=== PATIENT | male | born 1970 | race Caucasian/White ===

== ENCOUNTER 2017-03-16 08:55 | Emergency (ER) | payer OTHER ==
[~2017-03-16] VITALS: Ht 170.2 cm; Wt 69.0 kg
[~2017-03-16 08:55] MED LIST: LORTA5 PO
[2017-03-16 09:00] VITALS: BP 189/97; PULSE 77; RESP 16; TEMP 98; O2SAT 100
[2017-03-16] MEDS ORDERED: SODIUM CHLORIDE 0.9% FLUSH 10 ML FLUSH IVF PRN (09:15)
[2017-03-16 09:34] LABS: AUTOMATED NEUTROPHIL # 5.9 TH/MM3 (1.8-7.7); BASOPHIL # 0.1 TH/MM3 (0-0.2); BASOPHIL % 0.8 % (0.0-2.0); EOSINOPHIL # 0.2 TH/MM3 (0-0.4); EOSINOPHIL % 1.9 % (0.0-4.0); HEMATOCRIT 44.3 % (39.0-51.0); HEMOGLOBIN 15.5 GM/DL (13.0-17.0); LYMPH % 25.5 % (9.0-44.0); LYMPHOCYTE # 2.4 TH/MM3 (1.0-4.8); MEAN CELL VOLUME 91.9 FL (80.0-100.0); MEAN CORPUSCULAR HEMOGLOBIN 32.1 PG (27.0-34.0); MONOCYTE # 0.6 TH/MM3 (0-0.9); NEUT % 64.8 % (16.0-70.0); PLATELET COUNT 210 TH/MM3 (150-450); RED BLOOD COUNT 4.82 MIL/MM3 (4.50-5.90); RED CELL DISTRIBUTION WIDTH 13.3 % (11.6-17.2); WHITE BLOOD COUNT 9.2 TH/MM3 (4.0-11.0)
[2017-03-16 09:35] VITALS: RESP 18; O2SAT 97
[2017-03-16] MEDS ORDERED: TYLE325T PO (09:39)
--- NOTE | 2017-03-16 09:48 | PD ---
HPI Chief Complaint: GI Complaint Time Seen by Provider: 09:11 Travel History International Travel<30 days: No Contact w/Intl Traveler<30days: No Traveled to known affect area: No History of Present Illness HPI 47-year-old male presents with 2 episodes of bright red bleeding per rectum. He states they occurred this morning while he was at work. He denies any abdominal pain, vomiting, fever or other concurrent complaints. Quality is bright red. Severity is 2 episodes. He states it was hard to see because the lighting was poor but he did not have black stool. He denies prior history of this. He denies routine colonoscopy or EGD in the past. He denies specific modifying factors. PFSH Past Medical History Autoimmune Disease: No Anxiety: No Depression: Yes Cancer: No Cardiovascular Problems: Yes (HEART MURMUR) Chemotherapy: No COPD: Yes Diminished Hearing: No Endocrine: No Gastrointestinal Disorders: Yes (IBS) Immune Disorder: No Psychiatric: No Reproductive: No Radiation Therapy: No Tetanus Vaccination: Unknown Influenza Vaccination: Yes Past Surgical History AICD: No Arteriovenous Shunt: No Cholecystectomy: Yes Insulin Pump: No Joint Replacement: No Oral Surgery: Yes (ALL TEETH REMOVED) Pacemaker: No Thoracic Surgery: Yes (BACK SURG -1990) Other Surgery: Yes (BACK SURG -1990) Social History Alcohol Use: No Tobacco Use: Yes (1.5 PPD) Substance Use: No Allergies-Medications (Allergen,Severity, Reaction): Coded Allergies: shrimp (Unverified Allergy, Mild, SWELLING, 03/16/17) Reported Meds & Prescriptions Reported Meds & Active Scripts Active Reported Tylenol (Acetaminophen) 325 Mg Tab 325 Mg PO DIRECTED Review of Systems Except as stated in HPI: all other systems reviewed are Neg Physical Exam Narrative GENERAL: 47 y/o male in no apparent distress SKIN: Focused skin assessment warm/dry. HEAD: Atraumatic. Normocephalic. EYES: Pupils equal and round. No scleral icterus. No injection or drainage. ENT: No nasal bleeding or discharge. Mucous membranes pink and moist. NECK: Trachea midline. No JVD. CARDIOVASCULAR: Regular rate and rhythm. No murmur appreciated. RESPIRATORY: No accessory muscle use. No increased effort GASTROINTESTINAL: Abdomen soft, non-tender, nondistended. Rectal: After permission and with pipe turner, no large hemorrhoid or fissure, stool is brown with small bright red area noted NEUROLOGICAL: Awake and alert. No obvious cranial nerve deficits. Motor grossly within normal limits. Normal speech. PSYCHIATRIC: Appropriate mood and affect; insight and judgment normal. Data Data Last Documented VS Vital Signs Date Time Temp Pulse Resp B/P (MAP) Pulse Ox O2 Delivery O2 Flow Rate FiO2 03/16/17 09:35 18 97 Room Air 03/16/17 09:00 98.0 77 189/97 (127) Orders Orders Basic Metabolic Panel (Bmp) (03/16/17 09:12) Complete Blood Count With Diff (03/16/17 09:12) Prothrombin Time / Inr (Pt) (03/16/17 09:12) Act Partial Throm Time (Ptt) (03/16/17 09:12) Ecg Monitoring (03/16/17 09:12) Iv Access Insert/Monitor (03/16/17 09:12) Oximetry (03/16/17 09:12) Sodium Chloride 0.9% Flush (Ns Flush) (03/16/17 09:15) Ed Discharge Order (03/16/17 10:13) Labs Laboratory Tests Test 03/16/17 09:30 White Blood Count 9.2 TH/MM3 Red Blood Count 4.82 MIL/MM3 Hemoglobin 15.5 GM/DL Hematocrit 44.3 % Mean Corpuscular Volume 91.9 FL Mean Corpuscular Hemoglobin 32.1 PG Mean Corpuscular Hemoglobin Concent 35.0 % Red Cell Distribution Width 13.3 % Platelet Count 210 TH/MM3 Mean Platelet Volume 8.0 FL Neutrophils (%) (Auto) 64.8 % Lymphocytes (%) (Auto) 25.5 % Monocytes (%) (Auto) 7.0 % Eosinophils (%) (Auto) 1.9 % Basophils (%) (Auto) 0.8 % Neutrophils # (Auto) 5.9 TH/MM3 Lymphocytes # (Auto) 2.4 TH/MM3 Monocytes # (Auto) 0.6 TH/MM3 Eosinophils # (Auto) 0.2 TH/MM3 Basophils # (Auto) 0.1 TH/MM3 CBC Comment DIFF FINAL Differential Comment Prothrombin Time 9.9 SEC Prothromb Time International Ratio 1.0 RATIO Activated Partial Thromboplast Time 28.8 SEC Blood Urea Nitrogen 11 MG/DL Creatinine 1.10 MG/DL Random Glucose 99 MG/DL Calcium Level 9.3 MG/DL Sodium Level 138 MEQ/L Potassium Level 3.4 MEQ/L Chloride Level 105 MEQ/L Carbon Dioxide Level 28.7 MEQ/L Anion Gap 4 MEQ/L Estimat Glomerular Filtration Rate 72 ML/MIN MDM Medical Decision Making Medical Screen Exam Complete: Yes Emergency Medical Condition: Yes Medical Record Reviewed: Yes (Past history confirmed) Interpretation(s) CBC & BMP Diagram 03/16/17 09:30 Calcium Level 9.3 Differential Diagnosis Hemorrhoid, fissure, gastroenteritis, diverticulosis Narrative Course We will check blood work and reevaluate. labs normal here, no further bleeding here, Patient denies any new complaints and states that they are feeling better. Patient happy with care, all questions answered. Patient knows that follow up is incumbent on them and to return to the emergency room immediately if new or worsening symptoms develop. Patient given strict return precautions, vitals reviewed and are normal, agrees to further workup as an outpatient. [facility] Point of Care Internal Pos. & Neg. Controls: Passed Fecal Specimen Occult Blood: Positive Diagnosis Primary Impression: Rectal bleeding Referrals: First Aid Nurse call for appointment Patient Instructions: General Instructions Additional Instructions: return as needed Med/Other Pt SpecificInfo: No Change to Meds Disposition: 01 DISCHARGE HOME Condition: Stable Meche Meza MD Mar 16, 2017 09:48
[2017-03-16 09:50] LABS: PROTHROMBIN TIME - PATIENT 9.9 SEC (9.8-11.6)
[2017-03-16 09:59] LABS: CALCIUM 9.3 MG/DL (8.5-10.1)
[2017-03-16 10:00] LABS: BICARBONATE 28.7 MEQ/L (21.0-32.0)
[2017-03-16 10:03] LABS: CREATININE 1.1 MG/DL (0.60-1.30)
[2017-03-16 10:19] VITALS: BP 160/90
== END 2017-03-16 10:25 | disposition home or self-care (01) ==
LOC: PHED 08:55
DX: K62.5 Hemorrhage of anus and rectum (principal); J44.9 Chronic obstructive pulmonary disease, unspecified; F32.9 Major depressive disorder, single episode, unspecified; F17.210 Nicotine dependence, cigarettes, uncomplicated
CPT/HCPCS: 80048; 85025; 85610; 85730; 99283